=== PATIENT | female | born 1995 | race Caucasian/White ===

== ENCOUNTER 2018-06-25 13:53 | Outpatient (CLI) | payer OTHER ==
[~2018-06-25] VITALS: Ht 152.4 cm; Wt 72.7 kg
[2018-06-25 14:40] LABS: AMPHETAMINE SCREEN, URINE Negative (Negative); BARBITURATE SCREEN, URINE Negative (Negative); BENZODIAZEPINE SCREEN, URINE Negative (Negative); CANNABINOID SCREEN, URINE Negative (Negative); COCAINE SCREEN, URINE Negative (Negative); METHADONE SCREEN, URINE Negative (Negative); OPIATE SCREEN, URINE Negative (Negative)
[2018-06-25 14:45] LABS: MICROSCOPIC INDICATED
== END 2018-06-25 15:45 | disposition home or self-care (01) ==
LOC: LDOP 13:53
PROVIDERS: ATTEND Obstetrics & Gynecology Female Pelvic Medicine and Reconstructive Surgery
DX: O42.92 Full-term premature rupture of membranes, unspecified as to length of time between rupture and onset of labor (principal); Z3A.40 40 weeks gestation of pregnancy
CPT/HCPCS: 59025; 80307; 81001; 84112; 87081; 87086; 89060; 99201; G0463; Q0114

== ENCOUNTER 2018-06-29 07:51 | Inpatient (IN) | payer OTHER ==
[~2018-06-29] VITALS: Ht 152.4 cm; Wt 72.7 kg
[2018-06-29] MEDS ORDERED: PREN1TAB60 PO (08:06)
[2018-06-29 08:22] VITALS: BP 107/62
[2018-06-29 08:36] LABS: MICROSCOPIC INDICATED
[2018-06-29 08:40] LABS: AMPHETAMINE SCREEN, URINE Negative (Negative); BARBITURATE SCREEN, URINE Negative (Negative); BENZODIAZEPINE SCREEN, URINE Negative (Negative); CANNABINOID SCREEN, URINE Negative (Negative); COCAINE SCREEN, URINE Negative (Negative); METHADONE SCREEN, URINE Negative (Negative); OPIATE SCREEN, URINE Negative (Negative)
[2018-06-29] MEDS ORDERED: OXYTOCIN 30U/ 0.9% NaCL 500ML 500 ML IV ONE (09:26)
[2018-06-29] MEDS ORDERED: TERBUTALINE 1 MG/ML, 1ML IVPush PRN (09:30)
[2018-06-29] MEDS ORDERED: FENTANYL PF 100 MCG/2ML IV PRN (09:30)
[2018-06-29] MEDS ORDERED: FENTANYL PF 100 MCG/2ML IVPush PRN (09:30)
[2018-06-29] MEDS ORDERED: ONDANSETRON 2MG/ML, 2ML IVPush PRN (09:30)
[2018-06-29] MEDS: LACTATED RINGERS 1,000 ML IV SCH ×2 (09:40→16:20)
[2018-06-29] MEDS ORDERED: NEWBORN KIT ONE (10:01)
[2018-06-29] MEDS ORDERED: LIDOCAINE 1%, 20ML ONE (10:01)
[2018-06-29] MEDS ORDERED: OXYTOCIN 30U/ 0.9% NaCL 500ML 500 ML ONE (10:02)
[2018-06-29] MEDS ORDERED: MISOPROSTOL 200 MCG TABLET ONE (10:02)
[2018-06-29 10:19] LABS: BASOPHILS # (AUTO) 0.04 x10^3/uL (0-0.1); BASOPHILS % (AUTO) 0 % (0-1); EOSINOPHILS # (AUTO) 0.11 x10^3/uL (0-0.4); EOSINOPHILS % (AUTO) 1 % (1-7); LYMPHOCYTES # (AUTO) 3.01 x10^3/uL (1-3.4); LYMPHOCYTES % (AUTO) 29 % (22-44); MD NO; MEAN CORPUSCULAR HEMOGLOBIN 26.2 pg (27.0-34.8); MEAN CORPUSCULAR HGB CONC 33.2 g/dL (32.4-35.8); MEAN CORPUSCULAR VOLUME 78.8 fL (80-100); MEAN PLATELET VOLUME 8.8 fL (7.4-10.4); MONOCYTES # (AUTO) 0.63 x10^3/uL (0.2-0.8); MONOCYTES % (AUTO) 6 % (2-9); NEUTROPHILS # (AUTO) 6.52 x10^3/uL (1.8-6.8); NEUTROPHILS % (AUTO) 63 % (42-75); PLATELET COUNT 227 x10^3/uL (130-400); RED BLOOD COUNT 4.35 x10^6/uL (3.82-5.3)
[2018-06-29] MEDS ORDERED: OXYTOCIN 30U/ 0.9% NaCL 500ML 500 ML IV PRN (22:10)
[2018-06-30] MEDS ORDERED: METHYLERGONOVINE 0.2 MG/ML IM PRN
[2018-06-30] MEDS ORDERED: ONDANSETRON 2MG/ML, 2ML IV PRN
[2018-06-30] MEDS ORDERED: MISOPROSTOL 200 MCG TABLET PR PRN
[2018-06-30] MEDS ORDERED: OXYcodone/APAP 5/325MG TABLET PO PRN ×2
[2018-06-30] MEDS ORDERED: OXYTOCIN 30U/ 0.9% NaCL 500ML 500 ML ONE (00:22)
[2018-06-30] MEDS: OXYTOCIN 30U/ 0.9% NaCL 500ML 500 ML IV SCH ×3 (00:23→19:57)
[2018-06-30] MEDS: LACTATED RINGERS 1,000 ML IV SCH ×3 (00:23→16:46)
[2018-06-30] MEDS ORDERED: IBUPROFEN 600 MG TABLET ONE (01:15)
[2018-06-30 03:30] VITALS: BP 110/62
[2018-06-30 07:55] VITALS: BP 109/62
[2018-06-30 08:27] LABS: MEAN CORPUSCULAR HEMOGLOBIN 25.7 pg (27.0-34.8); MEAN CORPUSCULAR HGB CONC 32.6 g/dL (32.4-35.8); MEAN PLATELET VOLUME 9.1 fL (7.4-10.4); PLATELET COUNT 232 x10^3/uL (130-400); RED BLOOD COUNT 4.09 x10^6/uL (3.82-5.3); RED CELL DISTRIBUTION WIDTH 16.3 % (9.6-15.2)
[2018-06-30] MEDS: PRENATAL VIT/IRON/FA 1 EACH TABLET PO SCH (08:54)
[2018-06-30 08:55] LABS: BASOPHILS # (AUTO) 0.03 x10^3/uL (0-0.1); BASOPHILS % (AUTO) 0 % (0-1); EOSINOPHILS # (AUTO) 0.02 x10^3/uL (0-0.4); EOSINOPHILS % (AUTO) 0 % (1-7); LYMPHOCYTES # (AUTO) 2.08 x10^3/uL (1-3.4); LYMPHOCYTES % (AUTO) 10 % (22-44); MD SCAN; MONOCYTES # (AUTO) 0.96 x10^3/uL (0.2-0.8); MONOCYTES % (AUTO) 5 % (2-9); NEUTROPHILS # (AUTO) 17.35 x10^3/uL (1.8-6.8); NEUTROPHILS % (AUTO) 85 % (42-75)
[2018-06-30 13:15] VITALS: BP 103/64
[2018-06-30] MEDS: IBUPROFEN 800 MG TABLET PO PRN ×2 (13:44→22:55)
[2018-06-30 16:16] VITALS: BP 108/61
[2018-06-30 19:57] VITALS: BP 122/69
[2018-06-30] MEDS: DOCUSATE 100 MG CAPSULE PO PRN (22:55)
[2018-07-01 00:16] VITALS: BP 107/68
[2018-07-01] MEDS: LACTATED RINGERS 1,000 ML IV SCH ×2 (01:26→09:26)
[2018-07-01] MEDS: OXYTOCIN 30U/ 0.9% NaCL 500ML 500 ML IV SCH (05:57)
[2018-07-01] MEDS: PRENATAL VIT/IRON/FA 1 EACH TABLET PO SCH (07:43)
[2018-07-01] MEDS: IBUPROFEN 800 MG TABLET PO PRN (07:43)
[2018-07-01] MEDS: DOCUSATE 100 MG CAPSULE PO PRN (07:43)
[2018-07-01 07:45] VITALS: BP 119/77
[2018-07-01] MEDS ORDERED: IBUP-1223 PO (11:48)
== END 2018-07-01 13:20 | disposition home or self-care (01) | DRG 807 ==
LOC: LDOP 07:51 → LDIP 09:47 → 2NW 06-30 03:02
PROVIDERS: ADMIT Obstetrics & Gynecology; ATTEND Obstetrics & Gynecology
PROC: 10E0XZZ Delivery of Products of Conception, External Approach (ICD-10-PCS; principal; 2018-06-30)
DX: O77.0 Labor and delivery complicated by meconium in amniotic fluid (principal); Z37.0 Single live birth; Z3A.40 40 weeks gestation of pregnancy
CPT/HCPCS: 36415; 80307; 81001; 84112; 85025; 86850; 86900; 87086; G0378; J2590; J7120

== ENCOUNTER 2018-08-30 08:40 | Emergency (ER) | payer SELFPAY ==
[~2018-08-30] VITALS: Ht 152.4 cm; Wt 72.0 kg
[~2018-08-30 08:40] MED LIST: IBUP-1223 PO; PREN1TAB60 PO
[2018-08-30 08:59] VITALS: BP 142/88
--- NOTE | 2018-08-30 09:22 | NUR ---
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 Gave June 29 with no complications, did not f/u with her OB. Will cont to monitor
== END 2018-08-30 10:05 | disposition home or self-care (01) ==
LOC: ED 10:01
DX: Z00.00 Encounter for general adult medical examination without abnormal findings (principal)
CPT/HCPCS: 99281